=== PATIENT | female | born 1995 | race African-American/Black ===

== ENCOUNTER 2016-09-16 17:24 | Emergency (ER) | payer MEDICAID ==
[~2016-09-16] VITALS: Ht 157.5 cm; Wt 49.5 kg
[2016-09-16 17:26] VITALS: BP 116/63; PULSE 76; RESP 16; TEMP 98.3; O2SAT 99
[2016-09-16] MEDS ORDERED: IBUPROFEN 600 MG TAB PO ONE (18:45)
--- NOTE | 2016-09-16 18:45 | PD ---
HPI Chief Complaint: Headache Time Seen by Provider: 18:44 Travel History International Travel<30 days: No Contact w/Intl Traveler<30days: No Traveled to known affect area: No History of Present Illness HPI 21-year-old female with no significant medical history, presents to emergency department for evaluation of a headache. Patient states that she occasionally gets a headache but she would just like to know why it happens. She states also 3 days ago she had an episode where she felt as though her heart was racing. This resolved on its own. It is not associated with any pain or shortness of breath. Denies any recent illnesses, fever, chills. Is currently on her menstrual cycle. No urinary symptoms. No nausea or vomiting. No other symptoms to report. PFSH Past Medical History Medical History: Denies Significant Hx ?: Not Social History Alcohol Use: No Tobacco Use: No Substance Use: No Allergies-Medications (Allergen,Severity, Reaction): Coded Allergies: No Known Allergies (Unverified , 09/16/16) Reported Meds & Prescriptions Reported Meds & Active Scripts Active No Active Prescriptions or Reported Medications Review of Systems Except as stated in HPI: all other systems reviewed are Neg Physical Exam Narrative GENERAL: Well-nourished female patient, ambulatory with a nonantalgic gait, no acute distress SKIN: Warm and dry. HEAD: Atraumatic. Normocephalic. EYES: Pupils equal and round. No scleral icterus. No injection or drainage. ENT: No nasal bleeding or discharge. Mucous membranes pink and moist. NECK: Trachea midline. No JVD. CARDIOVASCULAR: Regular rate and rhythm. No murmur appreciated. RESPIRATORY: No accessory muscle use. Clear to auscultation. Breath sounds equal bilaterally. GASTROINTESTINAL: Abdomen soft, non-tender, nondistended. Hepatic and splenic margins not palpable. MUSCULOSKELETAL: No obvious deformities. No clubbing. No cyanosis. No edema. NEUROLOGICAL: Awake and alert. No obvious cranial nerve deficits. Motor grossly within normal limits. Normal speech. PSYCHIATRIC: Appropriate mood and affect; insight and judgment normal. Data Data Last Documented VS Vital Signs Date Time Temp Pulse Resp B/P Pulse Ox O2 Delivery O2 Flow Rate FiO2 09/16/16 19:07 72 18 99 Room Air 09/16/16 17:26 98.3 116/63 Orders Ibuprofen (Motrin) (09/16/16 18:45) [facility] Medical Decision Making Medical Screen Exam Complete: Yes Emergency Medical Condition: Yes Medical Record Reviewed: Yes Differential Diagnosis Headache, tension versus sinus versus cluster versus migraine headache versus headache associated with menses versus anxiety versus dehydration Narrative Course 21-year-old female presents to emergency department for evaluation. Patient appears well and without distress. Neuro exam is nonfocal. Patient has not taken anything for this headache when it does occur. I encouraged that she take Tylenol or ibuprofen. She is comfortable with this plan and will return with any acute worsening symptoms. Diagnosis Primary Impression: Head ache Qualified Code: R51 - Acute nonintractable headache, unspecified headache type Referrals: Primary Care Physician Patient Instructions: Acute Headache (ED), General Instructions Departure Forms: Tests/Procedures, Work Release Enter return to work date: Sep 17, 2016 Additional Instructions: Make sure you are drinking plenty of water Follow-up with primary care provider Tylenol or ibuprofen as directed on the package as needed for headache Return immediately to the emergency department with any acute worsening of symptoms Med/Other Pt SpecificInfo: No Change to Meds Scripts No Active Prescriptions or Reported Meds Disposition: 01 DISCHARGE HOME Condition: Stable MadrigalFosterSridaisy RIVERA Sep 16, 2016 18:45
== END 2016-09-16 19:28 | disposition home or self-care (01) ==
LOC: NETRI 17:24
DX: R51 Headache (principal)
CPT/HCPCS: 99283

== ENCOUNTER 2017-06-07 17:46 | Emergency (ER) | payer MEDICAID ==
[~2017-06-07] VITALS: Ht 157.5 cm; Wt 52.0 kg
[2017-06-07 17:48] VITALS: BP 104/61; PULSE 78; RESP 16; TEMP 98.6; O2SAT 98
--- NOTE | 2017-06-07 22:16 | PD ---
HPI Chief Complaint: [employer] Problem/Complaint Time Seen by Provider: 22:16 Travel History International Travel<30 days: No Contact w/Intl Traveler<30days: No Traveled to known affect area: No History of Present Illness HPI 22 YO F presents to the ED for evaluation of 2 day history of vaginal burning. Pain is rated 4/10. No alleviating or exacerbating factors reported. She denies fevers, chills, abdominal pain, nausea, vomiting, dysuria , back pain, vaginal discharge, vaginal bleeding. She endorses unprotected sex with a single female partner. She denies risk of . PFSH Past Medical History ?: Not LMP: 05/27/17 Social History Alcohol Use: No Tobacco Use: No Substance Use: No Allergies-Medications (Allergen,Severity, Reaction): Coded Allergies: No Known Allergies (Unverified , 09/16/16) Reported Meds & Prescriptions Reported Meds & Active Scripts Active No Active Prescriptions or Reported Medications Review of Systems Except as stated in HPI: all other systems reviewed are Neg Physical Exam Narrative GENERAL: Well-nourished, well-developed petite black female in no acute distress. SKIN: Focused skin assessment warm/dry. HEAD: Normocephalic. EYES: No scleral icterus. No injection or drainage. NECK: Supple, trachea midline. No JVD or lymphadenopathy. CARDIOVASCULAR: Regular rate and rhythm without murmurs, gallops, or rubs. RESPIRATORY: Breath sounds equal bilaterally. No accessory muscle use. GASTROINTESTINAL: Abdomen soft, non-tender, nondistended. Active bowel sounds. GENITOURINARY: Normal external genitalia without lesions or erythema. Vaginal vault small amount of thick white drainage. Cervical os was closed without drainage. No cervical motion tenderness. Uterus nontender and nonenlarged. Bilateral adnexa nontender without masses. MUSCULOSKELETAL: No cyanosis, or edema. BACK: Nontender without obvious deformity. No CVA tenderness. Data Data Last Documented VS Vital Signs Date Time Temp Pulse Resp B/P (MAP) Pulse Ox O2 Delivery O2 Flow Rate FiO2 06/07/17 22:30 16 06/07/17 22:24 98.6 84 112/56 (74) 100 Room Air Orders Orders Gc And Chlamydia Pcr (06/07/17 22:15) Wet Prep Profile (06/07/17 22:15) Ua Includes Microscopic (06/07/17 22:15) Ed Urine Pregnancytest Poc (06/07/17 22:15) [facility] Medical Decision Making Medical Screen Exam Complete: Yes Emergency Medical Condition: Yes Differential Diagnosis Vaginal candidiasis versus STI versus UTI versus other Narrative Course 22 YO F presents to the ED for evaluation of 2 day history of vaginal burning. Pain is rated 4/10. No alleviating or exacerbating factors reported. She denies fevers, chills, abdominal pain, nausea, vomiting, dysuria , back pain, vaginal discharge, vaginal bleeding. She endorses unprotected sex with a single female partner. She denies risk of . Vitals reviewed. Physical exam reveals a nontoxic-appearing black female in no acute distress. Abdominal exam is reassuring. Pelvic exam reveals a small amount of white discharge in the canal but is otherwise unremarkable. I offered the patient empiric treatment for GC and chlamydia which she declines at this time. Bedside urine test negative. UA and wet prep pending. Patient signed out to Dr. Short at end of shift. Please see her note for disposition. Scripts No Active Prescriptions or Reported Meds Paulina Mijares Jun 07, 2017 22:16
[2017-06-07 22:24] VITALS: BP 112/56; PULSE 84; RESP 16; TEMP 98.6; O2SAT 100
[2017-06-07 22:58] LABS: BLOOD, URINE NEG (NEG); GLUCOSE,URINE NEG (NEG); KETONE, URINE TRACE mg/dL (NEG); MUCUS URINE MANY /lpf (OCC); NITRITE,URINE NEG (NEG); SQUAMOUS EPITHELIAL CELL URINE <1 /hpf (0-5); URINE COLOR YELLOW (YELLW/STRAW)
[2017-06-08] MEDS ORDERED: MACR100C2 PO (00:08)
[2017-06-08] MEDS ORDERED: METR-1 PO (00:08)
--- NOTE | 2017-06-08 00:08 | PD ---
Data Data Last Documented VS Vital Signs Date Time Temp Pulse Resp B/P (MAP) Pulse Ox O2 Delivery O2 Flow Rate FiO2 06/07/17 22:30 16 06/07/17 22:24 98.6 84 112/56 (74) 100 Room Air Orders Orders Gc And Chlamydia Pcr (06/07/17 22:15) Wet Prep Profile (06/07/17 22:15) Ua Includes Microscopic (06/07/17:) Ed Urine Pregnancytest Poc (06/07/17:) Labs Laboratory Tests Test 06/07/17:22 06/07/17 22:30 Urine Color YELLOW Urine Turbidity HAZY Urine pH 6.0 Urine Specific [place] 1.038 Urine Protein 30 mg/dL Urine Glucose (UA) NEG mg/dL Urine Ketones TRACE mg/dL Urine Occult Blood NEG Urine Nitrite NEG Urine Bilirubin NEG Urine Urobilinogen 4.0 MG/DL Urine Leukocyte Esterase MOD Urine RBC 4 /hpf Urine WBC 25 /hpf Urine Squamous Epithelial Cells <1 /hpf Urine Amorphous Sediment RARE Urine Mucus MANY /lpf Clue Cells (Wet Prep) PRESENT Vaginal Trichomonas (Wet Prep) NONE SEEN Vaginal Yeast (Wet Prep) NONE SEEN MDM Medical Record Reviewed: Yes Supervised Visit with FERNANDA: No Narrative Course During the course of the patients emergency department visit, the patients history, examination, and differential diagnosis were reviewed with the patient. The patient had a wet prep and culture sent, urine sent for analysis. The patient was initially seen by Paulina who also did her pelvic exam. Please see her complete history and physical. The patient's case is checked out to me at the conclusion of her shift to review the laboratory studies. The patients laboratory studies were reviewed and remarkable for urinalysis consistent with a urinary tract infection, wet prep is positive for clue cells. The bedside test is negative. The patient will be discharged home with a prescription for Flagyl for bacterial vaginosis, and Macrobid for a urinary tract infection. The patient is resting comfortably and feels better, is alert and in no distress. The patients results and examination findings were discussed with the patient. The repeat examination is unremarkable and benign. The history, exam, diagnostic testing, and current condition do not suggest any significant pathology to warrant further testing, continued ED treatment, admission, or surgical evaluation at this point. The vital signs have been stable. The patient does not have uncontrollable pain, intractable vomiting, or other significant symptoms. The patient's condition is stable and appropriate for discharge. The patient will pursue further outpatient evaluation with a primary care physician or other designated or consulting physician as indicated in the discharge instructions. The patient expressed understanding and was agreeable with this plan. Diagnosis Primary Impression: Urinary tract infection Qualified Codes: N30.00 - Acute cystitis without hematuria Additional Impression: Bacterial vaginosis Referrals: [facility] 1 week Patient Instructions: Bacterial Vaginosis (ED), General Instructions, Urinary Tract Infection in Women (ED) Med/Other Pt SpecificInfo: Prescription(s) given Scripts Nitrofurantoin Monohydrate Macrocrystals (Macrobid) 100 Mg Cap 100 MG PO BID for Infection for 10 Days, #20 CAP 0 Refills Prov: Yvrose Short MD 06/08/17 Metronidazole (Flagyl) 500 Mg Tab 500 MG PO BID for Infection, #14 TAB 0 Refills Prov: Yvrose Shotr MD 06/08/17 Disposition: 01 DISCHARGE HOME Condition: Stable Yvrose Short MD Jun 08, 2017 00:08
[2017-06-08 01:08] LABS: CHLAMYDIA PCR DETECTED (NOT DETECT); NEISSERIA PCR NOT DETECTED (NOT DETECT)
== END 2017-06-08 00:20 | disposition home or self-care (01) ==
LOC: NEPC 17:46
DX: N30.00 Acute cystitis without hematuria (principal); N76.0 Acute vaginitis
CPT/HCPCS: 81001; 84703; 87210; 87491; 87591; 99284

== ENCOUNTER 2017-07-09 19:29 | Emergency (ER) | payer MEDICAID ==
[~2017-07-09] VITALS: Ht 157.5 cm; Wt 44.0 kg
[~2017-07-09 19:29] MED LIST: MACR100C2 PO; METR-1 PO
[2017-07-09 19:34] VITALS: BP 128/77; PULSE 68; RESP 16; TEMP 98.6; O2SAT 100
== END 2017-07-09 19:45 | disposition left against medical advice (07) ==
LOC: NEPE 19:29
DX: R68.89 Other general symptoms and signs (principal)
CPT/HCPCS: 99281; 99284